=== PATIENT | female | born 1955 | race Caucasian/White ===

== ENCOUNTER 2024-01-01 13:10 | Emergency (ER) | payer MEDICARE ==
[~2024-01-01] VITALS: Ht 167.6 cm; Wt 70.5 kg
[2024-01-01 14:22] VITALS: BP 135/95; PULSE 76; RESP 15; TEMP 98; O2SAT 98
[2024-01-01] MEDS: TETanus/Pertussis (Acell)/Diphther VAC/PF (Tdap-Adult) 0.5ml syringe IMVAC ONE (15:30)
== END 2024-01-01 15:38 | disposition home or self-care (01) ==
LOC: ER 13:11
DX: S61.511A Laceration without foreign body of right wrist, initial encounter (principal); Z88.2 Allergy status to sulfonamides; W45.8XXA Other foreign body or object entering through skin, initial encounter; Y93.89 Activity, other specified; Y92.89 Other specified places as the place of occurrence of the external cause; Y99.8 Other external cause status
CPT/HCPCS: 12001; 90471; 90715; 99283; J7030; 99282; A6449

== ENCOUNTER 2024-01-01 17:21 | Emergency (ER) | payer MEDICARE ==
[~2024-01-01] VITALS: Ht 167.6 cm; Wt 68.2 kg
[2024-01-01 17:24] VITALS: RESP 18; O2SAT 98
[2024-01-01] MEDS ORDERED: LIDOcaine 1% W/epiNEPHrine 1:100,000 20ml vial SQ ONE (17:35)
[2024-01-01] MEDS: LIDOCAINE 1%/EPI 1:100,000 inj. 10 ML multi-dose vial SQ ONE (17:55)
[2024-01-01] MEDS: bacitracin 15gm ointment TP ONE (17:55)
[2024-01-01 18:43] VITALS: BP 135/100; PULSE 85; TEMP 97.8
== END 2024-01-01 18:51 | disposition home or self-care (01) ==
LOC: ER 17:22
DX: S61.511A Laceration without foreign body of right wrist, initial encounter (principal); Z88.2 Allergy status to sulfonamides; W45.8XXA Other foreign body or object entering through skin, initial encounter; Y93.89 Activity, other specified; Y92.89 Other specified places as the place of occurrence of the external cause; Y99.8 Other external cause status
CPT/HCPCS: 12001; 99282; A6449